=== PATIENT | female | born 1985 | race African-American/Black ===

== ENCOUNTER 2018-11-17 09:16 | Inpatient (IN) | payer OTHER ==
[2018-11-17] MEDS ORDERED: MAGNESIUM SULFATE 20 GM/500 ML 500 ML IV (09:41)
[2018-11-17] MEDS ORDERED: LABETALOL HCL 20MG INJ (09:49)
[2018-11-17] MEDS ORDERED: CARBOPROST 250 MCG INJ IM (10:00)
[2018-11-17] MEDS ORDERED: MISOPROSTOL 200 MCG TAB PR (10:00)
[2018-11-17] MEDS ORDERED: METHYLERGONOVINE 0.2 MG INJ IM (10:00)
[2018-11-17] MEDS ORDERED: LIDOCAINE 1% (MPF) 30 ML INJ INJ (10:00)
[2018-11-17] MEDS ORDERED: BUTORPHANOL 2 MG INJ IV (10:00)
[2018-11-17] MEDS ORDERED: OXYTOCIN 30 UNITS/LR 500 ML IV (10:00)
[2018-11-17] MEDS: BUTORPHANOL 2 MG INJ IV (10:32)
[2018-11-17 10:33] LABS: ADD MAN DIFF? NO
[2018-11-17] MEDS ORDERED: ONDANSETRON 4 MG INJ (10:33)
[2018-11-17 10:36] LABS: ABNORMAL IP MESSAGE 1; BASOPHILS % 0.1 % (0.0-2.0); HEMATOCRIT 45.9 % (37.0-47.0); HEMOGLOBIN 15.3 g/dl (12.0-16.0); LYMPHOCYTES # 0.8 10^3/ul (0.8-2.9); LYMPHOCYTES % 7.3 % (15.0-51.0); MEAN CORPUSCULAR HEMOGLOBIN 29.9 pg (29.0-33.0); MEAN CORPUSCULAR HGB CONC 33.3 g/dl (32.0-37.0); MEAN CORPUSCULAR VOLUME 89.6 fl (82.0-101.0); MEAN PLATELET VOLUME 13.4 fl (7.4-10.4); MONOCYTE # 0.5 10^3/ul (0.3-0.9); MONOCYTES % 4.3 % (0.0-11.0); NEUTROPHIL # 9.2 10^3/ul (1.6-7.5); PLATELET COUNT 122 10^3/UL (140-415); RED BLOOD COUNT 5.12 10^6/ul (4.20-5.40); RED CELL DISTRIBUTION WIDTH 12.2 % (11.5-14.5)
[2018-11-17 10:36] LABS: WHITE BLOOD COUNT 10.5 10^3/ul (4.8-10.8)
[2018-11-17 10:37] LABS: POSITIVE DIFF @See below
[2018-11-17] MEDS: LACTATED RINGER'S 1,000 ML IV (10:37)
[2018-11-17] MEDS: AMPICILLIN 2 GM/NS (PMX) 100 ML IV (10:38)
[2018-11-17] MEDS: LABETALOL HCL 20MG INJ IV (10:47)
[2018-11-17] MEDS: ONDANSETRON 4 MG INJ IV ×2 (10:50→18:09)
[2018-11-17 11:05] LABS: INR 0.91; PARTIAL THROMBOPLASTIN TIME 27.2 Sec (23.0-35.0); PROTIME 12.4 Sec (11.9-14.9)
[2018-11-17] MEDS: MAGNESIUM SULFATE 4 GM/100 ML 100 ML IV (11:25)
[2018-11-17 11:32] LABS: HEPATITIS B SURFACE ANTIGEN NEGATIVE (NEGATIVE)
[2018-11-17] MEDS: MAGNESIUM SULFATE 40GM/1000ML 1,000 ML IV (11:44)
[2018-11-17 12:01] LABS: ALANINE AMINOTRANSFERASE 15 IU/L (13-69); ALBUMIN/GLOBULIN RATIO 1.14; ALKALINE PHOSPHATASE 424 IU/L (42-121); ANION GAP 11 (5-13); ASPARTATE AMINO TRANSFERASE 37 IU/L (15-46); BILIRUBIN,INDIRECT 0.6 mg/dl (0-1.1); BILIRUBIN,TOTAL 0.6 mg/dl (0.2-1.3); BLOOD UREA NITROGEN 11 mg/dl (7-20); CALCIUM 9.8 mg/dl (8.4-10.2); CARBON DIOXIDE 21 mmol/L (21-31); CHLORIDE 104 mmol/L (97-110); CREATININE 0.65 mg/dl (0.44-1.00); Estimated GFR > 60 mL/min (>60); GLUCOSE 113 mg/dl (70-220); POTASSIUM 3.8 mmol/L (3.5-5.1); SODIUM 136 mmol/L (135-144); TOTAL PROTEIN 7.5 g/dl (6.1-8.1); URIC ACID 6.2 mg/dl (3.1-7.9)
[2018-11-17 12:02] LABS: ALANINE AMINOTRANSFERASE 17 IU/L (13-69); ALKALINE PHOSPHATASE 441 IU/L (42-121); ASPARTATE AMINO TRANSFERASE 37 IU/L (15-46); BILIRUBIN,INDIRECT 0.6 mg/dl (0-1.1); BILIRUBIN,TOTAL 0.6 mg/dl (0.2-1.3); TOTAL PROTEIN 7.5 g/dl (6.1-8.1)
[2018-11-17] MEDS ORDERED: AMPICILLIN 1 GM/NS (PMX) 50 ML IV (14:00)
[2018-11-17] MEDS: OXYTOCIN 30 UNITS/LR 500 ML IV (14:04)
[2018-11-17 15:39] LABS: RAPID PLASMA REAGIN NONREACTIVE (NR)
[2018-11-17] MEDS ORDERED: FENTAnyl 2MCG/ML-ROPIV 0.2% 100 ML (17:28)
[2018-11-17] MEDS ORDERED: DIPHENHYDRAMINE 50 MG INJ IV (17:30)
[2018-11-17] MEDS ORDERED: HYDROmorphONE 0.5 MG/0.5 ML SYG IV ×2 (17:30)
[2018-11-17] MEDS ORDERED: FENTAnyl 2MCG/ML-ROPIV 0.2% 100 ML BAG EPI (17:30)
[2018-11-17] MEDS ORDERED: NALOXONE (0.4 MG/ML) INJ IV (17:30)
[2018-11-17] MEDS ORDERED: KETOROLAC 30 MG INJ IV (17:30)
[2018-11-18] MEDS: LACTATED RINGER'S 1,000 ML IV ×4 (01:41→19:52)
[2018-11-18] MEDS: OXYTOCIN 30 UNITS/LR 500 ML IV ×3 (02:18→09:35)
[2018-11-18] MEDS: MINERAL OIL LIGHT 10 ML VIAL TOP (02:30)
[2018-11-18] MEDS ORDERED: MISOPROSTOL 200 MCG TAB PR (03:00)
[2018-11-18] MEDS ORDERED: ONDANSETRON 4 MG INJ IV (03:00)
[2018-11-18] MEDS ORDERED: CARBOPROST 250 MCG INJ IM (03:00)
[2018-11-18] MEDS ORDERED: HYDROCODONE/APAP (5/325) TAB PO (03:00)
[2018-11-18] MEDS ORDERED: ZOLPIDEM 5 MG TAB PO (03:00)
[2018-11-18] MEDS: SENNA/DOCUSATE NA (8.6MG/50MG) TAB PO ×3 (03:00→22:29)
[2018-11-18] MEDS: IBUPROFEN 600 MG TAB PO ×4 (03:00→17:27)
[2018-11-18] MEDS ORDERED: NACL 0.9% 3 ML SYG IV (03:00)
[2018-11-18] MEDS ORDERED: OXYTOCIN 30 UNITS/LR 500 ML IV (03:00)
[2018-11-18] MEDS ORDERED: DIPHENHYDRAMINE 25 MG CAP PO (03:00)
[2018-11-18] MEDS ORDERED: LABETALOL HCL 20MG INJ (03:36)
[2018-11-18] MEDS: LABETALOL HCL 20MG INJ IV (03:54)
[2018-11-18 04:08] LABS: MAGNESIUM 6.7 mg/dl (1.7-2.5)
[2018-11-18] MEDS: MAGNESIUM SULFATE 40GM/1000ML 1,000 ML IV (06:04)
[2018-11-18] MEDS: LANOLIN HPA 1 PKT TOP (09:33)
[2018-11-18] MEDS: WITCH HAZEL/GLYCERIN PAD PR (09:33)
[2018-11-18] MEDS: LABETALOL 200 MG TAB PO ×2 (09:33→22:29)
[2018-11-18 13:22] LABS: MAGNESIUM 6.2 mg/dl (1.7-2.5)
[2018-11-18 18:57] LABS: MAGNESIUM 6.2 mg/dl (1.7-2.5)
[2018-11-19] MEDS: IBUPROFEN 600 MG TAB PO ×4 (00:46→18:07)
[2018-11-19 01:22] LABS: MAGNESIUM 6.5 mg/dl (1.7-2.5)
[2018-11-19] MEDS: MAGNESIUM SULFATE 40GM/1000ML 1,000 ML IV (01:30)
[2018-11-19] MEDS: LACTATED RINGER'S 1,000 ML IV (01:41)
[2018-11-19] MEDS: SENNA/DOCUSATE NA (8.6MG/50MG) TAB PO ×2 (08:48→22:27)
[2018-11-19] MEDS: LABETALOL 200 MG TAB PO ×2 (08:49→22:27)
[2018-11-19 09:52] LABS: MAGNESIUM 3.2 mg/dl (1.7-2.5)
[2018-11-19 10:13] LABS: ADD MAN DIFF? NO
[2018-11-19 10:18] LABS: WHITE BLOOD COUNT 8.8 10^3/ul (4.8-10.8)
[2018-11-19 10:18] LABS: BASOPHILS % 0.2 % (0.0-2.0); EOSINOPHILS % 0.3 % (0.0-7.0); HEMATOCRIT 33.7 % (37.0-47.0); HEMOGLOBIN 11.3 g/dl (12.0-16.0); LYMPHOCYTES # 1.1 10^3/ul (0.8-2.9); MEAN CORPUSCULAR HGB CONC 33.5 g/dl (32.0-37.0); MEAN CORPUSCULAR VOLUME 92.6 fl (82.0-101.0); MEAN PLATELET VOLUME 12.3 fl (7.4-10.4); MONOCYTE # 0.5 10^3/ul (0.3-0.9); MONOCYTES % 5.4 % (0.0-11.0); NEUTROPHIL # 7.2 10^3/ul (1.6-7.5); NEUTROPHILS % 81.8 % (39.0-77.0); PLATELET COUNT 104 10^3/UL (140-415); RED BLOOD COUNT 3.64 10^6/ul (4.20-5.40); RED CELL DISTRIBUTION WIDTH 12.4 % (11.5-14.5)
[2018-11-20] MEDS: IBUPROFEN 600 MG TAB PO ×4 (00:05→17:44)
[2018-11-20] MEDS: SENNA/DOCUSATE NA (8.6MG/50MG) TAB PO ×2 (09:28→21:00)
[2018-11-20] MEDS: LABETALOL 200 MG TAB PO ×2 (09:28→21:00)
[2018-11-20] MEDS: MEASLES,MUMPS,RUBELLA VACCINE INJ SC* (09:28)
[2018-11-20] MEDS: VARICELLA VACCINE LIVE/PF 1,350 UNIT/0.5 ML ML SC* (09:29)
[2018-11-20 12:13] LABS: ADD MAN DIFF? NO
[2018-11-20 12:18] LABS: BASOPHILS % 0.2 % (0.0-2.0); EOSINOPHILS % 0.2 % (0.0-7.0); HEMATOCRIT 33.7 % (37.0-47.0); HEMOGLOBIN 11.1 g/dl (12.0-16.0); LYMPHOCYTES # 1.4 10^3/ul (0.8-2.9); LYMPHOCYTES % 14.7 % (15.0-51.0); MEAN CORPUSCULAR HEMOGLOBIN 30.7 pg (29.0-33.0); MEAN CORPUSCULAR HGB CONC 32.9 g/dl (32.0-37.0); MEAN CORPUSCULAR VOLUME 93.4 fl (82.0-101.0); MEAN PLATELET VOLUME 11.8 fl (7.4-10.4); MONOCYTE # 0.6 10^3/ul (0.3-0.9); MONOCYTES % 6.5 % (0.0-11.0); NEUTROPHIL # 7.3 10^3/ul (1.6-7.5); NEUTROPHILS % 77.9 % (39.0-77.0); PLATELET COUNT 116 10^3/UL (140-415); RED BLOOD COUNT 3.61 10^6/ul (4.20-5.40); RED CELL DISTRIBUTION WIDTH 12.4 % (11.5-14.5)
[2018-11-20 12:18] LABS: WHITE BLOOD COUNT 9.4 10^3/ul (4.8-10.8)
[2018-11-20] MEDS: WITCH HAZEL/GLYCERIN PAD PR (20:59)
[2018-11-20] MEDS: LANOLIN HPA 1 PKT TOP (20:59)
== END 2018-11-20 23:00 | disposition home or self-care (01) | DRG 807 ==
LOC: OBT 09:16 → L-D 09:16 → PP1 11-18 08:50 → OBT 09:40 → L-D 10:03
PROVIDERS: Obstetrics & Gynecology
PROC: 4A1HXCZ Monitoring of Products of Conception, Cardiac Rate, External Approach (ICD-10-PCS; 2018-11-17)
PROC: 10D07Z6 Extraction of Products of Conception, Vacuum, Via Natural or Artificial Opening (ICD-10-PCS; principal; 2018-11-18)
PROC: 0HQ9XZZ Repair Perineum Skin, External Approach (ICD-10-PCS; 2018-11-18)
DX: O14.14 Severe pre-eclampsia complicating childbirth (principal); Z37.0 Single live birth; O76 Abnormality in fetal heart rate and rhythm complicating labor and delivery; O70.0 First degree perineal laceration during delivery; Z3A.39 39 weeks gestation of pregnancy
CPT/HCPCS: 62322; 80053; 80076; 83735; 84560; 85025; 85384; 85610; 85730; 86592; 86850; 86900; 86901; 87340; 88307; 90716; 99464